=== PATIENT | male | born 1990 | race Caucasian/White ===

== ENCOUNTER 2022-07-01 05:14 | Day surgery (SDC) | payer OTHER ==
[2022-07-01 11:15] VITALS: TEMP 98.4
[2022-07-01 11:37] VITALS: RESP 16
[2022-07-01 11:38] VITALS: BP 112/83; PULSE 71
== END 2022-07-01 11:45 | disposition home or self-care (01) ==
LOC: JASU-ENDO 05:14
PROVIDERS: ATTEND Student in an Organized Health Care Education/Training Program
PROC: 0DB78ZX Excision of Stomach, Pylorus, Via Natural or Artificial Opening Endoscopic, Diagnostic (ICD-10-PCS; 2022-07-01)
PROC: 0DB68ZX Excision of Stomach, Via Natural or Artificial Opening Endoscopic, Diagnostic (ICD-10-PCS; 2022-07-01)
PROC: 0DB98ZX Excision of Duodenum, Via Natural or Artificial Opening Endoscopic, Diagnostic (ICD-10-PCS; principal; 2022-07-01 11:30)
DX: K29.50 Unspecified chronic gastritis without bleeding (principal)
CPT/HCPCS: 88305-TC; 88342-TC